=== PATIENT | female | born 1975 | race African-American/Black ===

== ENCOUNTER 2016-12-26 07:24 | Day surgery (SDC) | payer OTHER ==
[~2016-12-26] VITALS: Ht 12.7 cm; Wt 100.2 kg
[~2016-12-26 07:24] MED LIST: FLEXERIL10 MG PO; KEFLEX500 MG PO; KENALOG,ARISTOC80 GM TP; MEDROL DOSEPAK4 MG PO; PERCOCET 5/31 TABLET PO
[2016-12-26 08:03] VITALS: BP 135/94
[2016-12-26] MEDS ORDERED: PERCOCET 5/31 TABLET PO (09:55)
[2016-12-26 11:52] VITALS: BP 125/73
[2016-12-26 12:54] VITALS: BP 135/82
[2016-12-26 13:18] VITALS: BP 133/80
== END 2016-12-26 13:30 | disposition home or self-care (01) ==
LOC: SDC
PROC: 0UDB8ZX Extraction of Endometrium, Via Natural or Artificial Opening Endoscopic, Diagnostic (ICD-10-PCS; principal; 2016-12-26)
DX: N84.0 Polyp of corpus uteri (principal); N92.0 Excessive and frequent menstruation with regular cycle
CPT/HCPCS: 88305; J0131; J1100; J1170; J2250; J2270; J2405; J2765; J3010

== ENCOUNTER 2018-02-05 05:07 | Inpatient (IN) | payer OTHER ==
[~2018-02-05] VITALS: Ht 165.1 cm; Wt 122.4 kg
[2018-02-05] VITALS (9 sets, daily range): BP systolic 114–150; BP diastolic 58–96
[~2018-02-05 05:07] MED LIST changes: +LEXAPRO20 MG PO; +MINIPRESS5 MG PO; +PRENATAL TABLE1 EAC3 PO; +VENTOLIN HFA18 GM IH
[2018-02-05 05:45] LABS: BASOPHIL (%) 0.2 % (0-1); EOSINOPHIL (%) 2.3 % (0-5); EOSINOPHIL COUNT 0.1 K/uL (0-0.3); HEMATOCRIT 36.7 % (36.0-46.0); HEMOGLOBIN 12.3 G/DL (11.9-15.5); IMMATURE GRANULOCYTE (%) 0.4 % (0.0-0.7); LYMPHOCYTE (%) 28.3 % (15-42); LYMPHOCYTE COUNT 1.5 K/uL (1.0-2.8); MCH 27.8 PG (29.0-34.0); MCHC 33.5 G/DL (30.0-36.0); MCV 82.8 FL (83-99); MONOCYTE (%) 6.4 % (3-12); MONOCYTE COUNT 0.3 K/uL (0-0.8); NEUTROPHIL (%) 62.4 % (45-76); NEUTROPHIL COUNT 3.2 K/uL (1.8-6.4); PLATELET COUNT 177 K/uL (156-360); RBC DIS.WIDTH-CV 14.7 % (11.8-14.6); RBC DIS.WIDTH-SD 44.8 % (39-53); RED BLOOD COUNT 4.43 M/uL (3.80-5.20); WHITE BLOOD COUNT 5.1 K/uL (4.1-10.2)
[2018-02-05 05:56] LABS: ALBUMIN 3.2 g/dL (3.2-4.8); CHLORIDE 112 mEq/L (99-109); POTASSIUM 3.5 mEq/L (3.7-5.4); SODIUM 141 mEq/L (136-147)
[2018-02-05 05:58] LABS: GLUCOSE 81 mg/dL (70-99)
[2018-02-05 05:59] LABS: TOTAL PROTEIN 5.5 g/dL (6.4-8.3)
[2018-02-05 06:00] LABS: TOTAL BILIRUBIN 0.5 mg/dL (0.0-1.0)
[2018-02-05 06:02] LABS: ALKALINE PHOSPHATASE 209 IU/L (3-129); CREATININE 0.5 mg/dL (0.6-1.3); GFR ESTIMATE (CALCULATED) > 59 mL/min/
[2018-02-05 06:03] LABS: UREA NITROGEN (BUN) 6 mg/dL (9-23)
[2018-02-05 06:04] LABS: AST (GOT) 20 IU/L (2-34)
[2018-02-05 06:05] LABS: ALT (GPT) 14 IU/L (3-49)
[2018-02-05 06:48] LABS: AMPHETAMINE NEGATIVE (500 ng/mL); BARBITURATES NEGATIVE (200 ng/mL); BENZODIAZEPINES NEGATIVE (150 ng/mL); BUPRENORPHINE NEGATIVE (10 ng/mL); COCAINE NEGATIVE (150 ng/mL); METHADONE NEGATIVE (200 ng/mL); METHAMPHETAMINE NEGATIVE (500 ng/mL); OPIATES (MORPHINE) NEGATIVE (100 ng/mL); OXYCODONE NEGATIVE (100 ng/mL); PHENCYCLIDINE NEGATIVE (25 ng/mL); PROPOXYPHENE NEGATIVE (300 ng/mL); THC CANNABINOIDS NEGATIVE (50 ng/mL); TRICYCLIC ANTIDEPRESSANTS NEGATIVE (300 ng/mL)
[2018-02-05] MEDS ORDERED: PRENA1 TRUE CO1 EACH PO (07:18)
[2018-02-06 03:00] VITALS: BP 120/63
[2018-02-06 06:47] LABS: BASOPHIL (%) 0.1 % (0-1); EOSINOPHIL (%) 0.9 % (0-5); EOSINOPHIL COUNT 0.1 K/uL (0-0.3); HEMATOCRIT 35.6 % (36.0-46.0); HEMOGLOBIN 11.5 G/DL (11.9-15.5); IMMATURE GRANULOCYTE (%) 0.3 % (0.0-0.7); LYMPHOCYTE (%) 14.6 % (15-42); LYMPHOCYTE COUNT 1.3 K/uL (1.0-2.8); MCH 27.3 PG (29.0-34.0); MCHC 32.3 G/DL (30.0-36.0); MCV 84.4 FL (83-99); MONOCYTE (%) 5.7 % (3-12); MONOCYTE COUNT 0.5 K/uL (0-0.8); NEUTROPHIL (%) 78.4 % (45-76); NEUTROPHIL COUNT 7.1 K/uL (1.8-6.4); PLATELET COUNT 174 K/uL (156-360); RBC DIS.WIDTH-CV 14.7 % (11.8-14.6); RBC DIS.WIDTH-SD 45.2 % (39-53); RED BLOOD COUNT 4.22 M/uL (3.80-5.20)
[2018-02-06 08:14] VITALS: BP 124/60
[2018-02-06 11:33] VITALS: BP 113/53
[2018-02-06 15:56] VITALS: BP 108/58
[2018-02-06 19:00] VITALS: BP 129/60
[2018-02-07 02:18] VITALS: BP 133/70
[2018-02-07 07:22] VITALS: BP 144/65
[2018-02-07 09:22] VITALS: BP 142/69
[2018-02-07] MEDS ORDERED: IBUPROFEN800 MG PO (10:17)
[2018-02-07] MEDS ORDERED: ENDOCET 5-3251 EACH PO (10:17)
[2018-02-07 10:19] VITALS: BP 129/58
== END 2018-02-07 12:54 | disposition home or self-care (01) | DRG 765 ==
LOC: 2WEST 05:07 → 2SOUTH 12:56 → 2WEST 02-07 12:54
PROVIDERS: Obstetrics & Gynecology
DX: O34.211 Maternal care for low transverse scar from previous cesarean delivery (principal); O69.81X0 Labor and delivery complicated by cord around neck, without compression, not applicable or unspecified; O99.52 Diseases of the respiratory system complicating childbirth; O99.344 Other mental disorders complicating childbirth; O99.02 Anemia complicating childbirth; F43.10 Post-traumatic stress disorder, unspecified; O99.214 Obesity complicating childbirth; Z68.41 Body mass index [BMI] 40.0-44.9, adult; J45.909 Unspecified asthma, uncomplicated; F32.9 Major depressive disorder, single episode, unspecified; E66.01 Morbid (severe) obesity due to excess calories; D50.9 Iron deficiency anemia, unspecified; Z3A.39 39 weeks gestation of pregnancy; Z37.0 Single live birth
CPT/HCPCS: 80053; 85025; 86850; 86900; 86901; J0330; J0690; J2274; J2405; J7120; S0020